=== PATIENT | male | born 1985 | race Two or more races ===

== ENCOUNTER 2019-05-25 11:18 | Emergency (ER) | payer MEDICAID ==
[~2019-05-25] VITALS: Ht 185.4 cm; Wt 97.5 kg
[2019-05-25 11:24] VITALS: BP 147/94
[2019-05-25 12:49] LABS: Basophils # (auto) 0.1 10 ^3/uL (0-0.2); Basophils % (auto) 1.2 % (0.0-2.0); Eosinophils # (auto) 0.1 10 ^3/uL (0-0.8); Eosinophils % (auto) 0.8 % (0.0-7.0); Hemoglobin 14.7 g/dL (13.5-17.5); Lymphocytes # (auto) 2.3 10 ^3/uL (0.4-5.4); Lymphocytes % (auto) 21.4 % (10.0-50.0); Mean Corpuscular Hemoglobin 31.3 pg (28.0-32.0); Mean Corpuscular Hgb Conc. 34.2 g/dL (32.0-36.0); Mean Corpuscular Volume 91.7 fL (80.0-100.0); Monocytes # (auto) 0.9 10 ^3/uL (0-1.3); Monocytes % (auto) 8.7 % (0.0-12.0); Neutrophils # (auto) 7.3 10 ^3/uL (1.6-8.6); Neutrophils % (auto) 67.9 % (37.0-80.0); Platelet Count (auto) 244 10^3/uL (140-450); Red Blood Cells 4.69 10^6/uL (4.5-5.90); Red Cell Distribution Width 12.4 % (11.8-14.3); White Blood Cell 10.8 10^3/uL (4.4-10.8)
[2019-05-25] MEDS ORDERED: IOHEXOL 300 MG/ML 100ML BOTTLE IJ ONE (12:54)
[2019-05-25] MEDS ORDERED: KETOROLAC TROMETH 15 mg/ml 1ML VL IV ONE ×2 (13:00→13:15)
[2019-05-25 13:06] LABS: Albumin 4.1 g/dL (3.4-5.0); BUN/Creatinine Ratio 12.7; Calcium 9.4 mg/dL (8.5-10.1); Potassium 3.5 mmol/L (3.5-5.1)
[2019-05-25 13:08] LABS: Bilirubin, Total 1.8 mg/dL (0.2-1.0); Total Protein 7.8 g/dL (6.4-8.2)
[2019-05-25] MEDS ORDERED: cefTRIAXone 1GM/50ML D5W 50 ML IV ONE (13:45)
== END 2019-05-25 14:18 | disposition home or self-care (01) ==
LOC: ER 11:18
DX: M51.16 Intervertebral disc disorders with radiculopathy, lumbar region (principal); K61.0 Anal abscess; F17.210 Nicotine dependence, cigarettes, uncomplicated
CPT/HCPCS: 36415; 74177; 80053; 85025; 96365; 96375; 99285; J0696; J1885; Q9967

== ENCOUNTER → 2019-05-30 | Emergency (ER) | payer MEDICAID ==
[~2019-05-30] VITALS: Ht 185.4 cm; Wt 97.5 kg
[~2019-05-30] MED LIST: CEPH-37 PO; HYDROmorphone HCL 2 MG/ML VL IV ONE; KETOROLAC TROMETH 60MG/2ML VIAL IM ONE; ONDANSETRON HCL 4 MG/2 ML VIAL IV ONE
[2019-05-30 12:10] VITALS: BP 127/80
== END | disposition home or self-care (01) ==
LOC: ER 09:52
DX: S76.211A Strain of adductor muscle, fascia and tendon of right thigh, initial encounter (principal); X58.XXXA Exposure to other specified factors, initial encounter; Y93.89 Activity, other specified; Y92.89 Other specified places as the place of occurrence of the external cause; Y99.8 Other external cause status
CPT/HCPCS: 76870; 96372; 96374; 96375; 99284; J1170; J1885; J2405

== ENCOUNTER 2019-06-03 05:36 | Inpatient (IN) | payer MEDICAID ==
[~2019-06-03] VITALS: Ht 185.4 cm; Wt 105.5 kg
[2019-06-03] MEDS ORDERED: ONDANSETRON HCL 4 MG/2 ML VIAL IV ONE (06:15)
[2019-06-03] MEDS ORDERED: MORPHINE SULFATE 10 MG/ML INJ 1ML SDV IV ONE (06:15)
[2019-06-03] MEDS ORDERED: SODIUM CHLORIDE 0.9% 1,000 ML IV ONE (06:54)
[2019-06-03] MEDS ORDERED: cefTRIAXone 1GM/50ML D5W 50 ML IV ONE (07:00)
[2019-06-03 07:49] LABS: Basophils # (auto) 0 10 ^3/uL (0-0.2); Basophils % (auto) 0.1 % (0.0-2.0); Eosinophils # (auto) 0.1 10 ^3/uL (0-0.8); Eosinophils % (auto) 0.4 % (0.0-7.0); Hematocrit 39.8 % (41.0-53.0); Hemoglobin 13.7 g/dL (13.5-17.5); Lymphocytes # (auto) 1.7 10 ^3/uL (0.4-5.4); Lymphocytes % (auto) 6.7 % (10.0-50.0); Mean Corpuscular Hemoglobin 31.2 pg (28.0-32.0); Mean Corpuscular Hgb Conc. 34.5 g/dL (32.0-36.0); Mean Corpuscular Volume 90.4 fL (80.0-100.0); Monocytes # (auto) 1.6 10 ^3/uL (0-1.3); Monocytes % (auto) 6.6 % (0.0-12.0); Neutrophils # (auto) 21.4 10 ^3/uL (1.6-8.6); Neutrophils % (auto) 86.2 % (37.0-80.0); Platelet Count (auto) 416 10^3/uL (140-450); Red Cell Distribution Width 12.4 % (11.8-14.3); White Blood Cell 24.8 10^3/uL (4.4-10.8)
[2019-06-03 08:04] LABS: BUN/Creatinine Ratio 24.6; Calcium 9.6 mg/dL (8.5-10.1); Potassium 3.4 mmol/L (3.5-5.1)
[2019-06-03 08:05] LABS: INR 1.18 (0.9-1.15); Partial Thromboplastin Time 31.6 sec (23.64-32.05)
[2019-06-03 08:06] LABS: Bilirubin, Total 0.5 mg/dL (0.2-1.0); Total Protein 8.5 g/dL (6.4-8.2)
[2019-06-03] MEDS ORDERED: levoFLOXacin 750MG 150 ML IV ONE (09:45)
[2019-06-03] MEDS ORDERED: CLINDAMYCIN 900MG IV 50 ML IV ONE (09:45)
[2019-06-03] MEDS ORDERED: MORPHINE SULF INJ 2 MG/ML SYRINGE 1ML IV PRN (10:15)
[2019-06-03] MEDS ORDERED: ACETAMINOPHEN 500 MG TAB PO PRN (10:15)
[2019-06-03] MEDS ORDERED: PROMETHAZINE HCL 25 MG/ML 1ML IV PRN (10:15)
[2019-06-03] MEDS ORDERED: TEMAZEPAM 15 MG CAP PO PRN (10:15)
[2019-06-03] MEDS: SODIUM CHLORIDE 0.9% 1,000 ML IV SCH ×2 (10:20→23:39)
--- NOTE | 2019-06-03 10:55 | NUR ---
MS admit from ER MARIAMA WONG admitted to tele/MS after SBAR received. Patient oriented to SOFI PATEL primary RN, unit, [id number] and unit policies regarding patient care and visiting hours. Patient weighed by bedscale and encouraged to call if they need something. All questions and concerns addressed, patient verbalized understanding.
--- NOTE | 2019-06-03 11:25 | NUR ---
PAIN Patient complaining of pain in his scrotum /. Will administer pain medication as ordered.
[2019-06-03 12:00] VITALS: BP 138/89
--- NOTE | 2019-06-03 12:15 | NUR ---
PAIN REASSESSMENT Pain stating pain 10/10 still. Patient offered ice/hot packs, refused.
--- NOTE | 2019-06-03 12:51 | NUR ---
Paged MIHIR regarding pain management, patient stated that the pain is not being managed with morphine 2mg and is still reporting 10/10 pain.
--- NOTE | 2019-06-03 15:21 | NUR ---
MIHIR PAGED Regarding pain management for patient, new orders received, read back for clarification, will input and administer as ordered.
[2019-06-03] MEDS: KETOROLAC TROMETH 15 mg/ml 1ML VL IV PRN ×2 (15:42→22:36)
--- NOTE | 2019-06-03 15:42 | NUR ---
PAIN patient complaining of scrotal pain 10/10, pain medication administered as ordered.
--- NOTE | 2019-06-03 16:43 | NUR ---
PAIN REASSESSMENT Pain stating pain 6/10. Patient offered ice/hot packs, refused.
[2019-06-03 16:54] VITALS: BP 127/64
[2019-06-03] MEDS: IBUPROFEN 400 MG TAB PO PRN (18:25)
--- NOTE | 2019-06-03 19:42 | NUR ---
received pt from day rn poc reviewed
[2019-06-03 22:00] VITALS: BP 127/76
--- NOTE | 2019-06-03 22:30 | NUR ---
PT C/O PAIN 10/29 MEDICATED ORDERED
[2019-06-03] MEDS: FAMOTIDINE 20 MG TAB PO SCH (22:43)
--- NOTE | 2019-06-04 00:28 | NUR ---
PT C/O PAIN 12/29 REQUESTED A STRONGER PAIN MED HOSPITALIST PAGED
[2019-06-04] MEDS: IBUPROFEN 400 MG TAB PO PRN ×3 (00:51→17:28)
[2019-06-04] MEDS ORDERED: KETOROLAC TROMETH 15 mg/ml 1ML VL IV PRN (01:15)
[2019-06-04] MEDS: MORPHINE SULF INJ 2 MG/ML SYRINGE 1ML IV PRN ×4 (01:34→14:05)
--- NOTE | 2019-06-04 01:40 | NUR ---
PT WAS MEDICATED WITH MORPHINE FOR SCROTAL PAIN 12/29
[2019-06-04] MEDS ORDERED: ACETAMINOPHEN 500 MG TAB PO PRN (02:15)
[2019-06-04 05:00] VITALS: BP 129/78
--- NOTE | 2019-06-04 05:36 | NUR ---
medicated for scrotal pain 11/29
--- NOTE | 2019-06-04 05:56 | NUR ---
Pt is resting comfortable, pain relief with medication given
[2019-06-04 06:02] LABS: Basophils # (auto) 0 10 ^3/uL (0-0.2); Basophils % (auto) 0.1 % (0.0-2.0); Eosinophils # (auto) 0.1 10 ^3/uL (0-0.8); Eosinophils % (auto) 0.6 % (0.0-7.0); Hematocrit 35.2 % (41.0-53.0); Hemoglobin 12.5 g/dL (13.5-17.5); Lymphocytes # (auto) 2.1 10 ^3/uL (0.4-5.4); Lymphocytes % (auto) 9.8 % (10.0-50.0); Mean Corpuscular Hgb Conc. 35.5 g/dL (32.0-36.0); Monocytes # (auto) 1.1 10 ^3/uL (0-1.3); Monocytes % (auto) 5.2 % (0.0-12.0); Neutrophils # (auto) 18.5 10 ^3/uL (1.6-8.6); Neutrophils % (auto) 84.3 % (37.0-80.0); Nucleated Red Blood Cells % 0.1 %; Platelet Count (auto) 407 10^3/uL (140-450); Red Blood Cells 3.91 10^6/uL (4.5-5.90); Red Cell Distribution Width 12.1 % (11.8-14.3); White Blood Cell 21.9 10^3/uL (4.4-10.8)
[2019-06-04] MEDS: SODIUM CHLORIDE 0.9% 1,000 ML IV SCH ×3 (06:08→16:08)
[2019-06-04 06:19] LABS: Potassium 3.4 mmol/L (3.5-5.1)
[2019-06-04 06:26] LABS: Albumin 2.8 g/dL (3.4-5.0); BUN/Creatinine Ratio 21.2; Bilirubin, Total 0.6 mg/dL (0.2-1.0); Calcium 8.9 mg/dL (8.5-10.1); Total Protein 7.8 g/dL (6.4-8.2)
[2019-06-04 06:36] LABS: Urine Bacteria NONE SEEN /hpf (None Seen); Urine Blood Negative /uL (Negative); Urine Mucus FEW (None Seen); Urine Specific Gravity 1.031 (1.001-1.035); Urine WBC 2 /hpf (0 - 3)
--- NOTE | 2019-06-04 07:04 | NUR ---
report given to am nurse poc reviewed
--- NOTE | 2019-06-04 07:30 | NUR ---
Morning note patient resting in bed with eyes closed; respirations even and unlabored on room air, no distress noted. Fall precautions in place with call light within reach.
--- NOTE | 2019-06-04 08:00 | NUR ---
RE: Scrotum Scrotum is swollen, red and warm to touch. No drainage noted. Skin is intact. Patient denies recent trauma to the site.
--- NOTE | 2019-06-04 08:01 | NUR ---
RE: Patient using Chewing tobacco Patient using chewing tobacco and spitting into a bottle. Education provided. Patient verbalized understanding. Patient is alert and oriented.
[2019-06-04 09:00] VITALS: BP 124/80
[2019-06-04] MEDS: cefTRIAXone 1GM/50ML D5W 50 ML IV SCH (09:21)
[2019-06-04] MEDS: FAMOTIDINE 20 MG TAB PO SCH ×2 (10:00→22:06)
--- NOTE | 2019-06-04 10:12 | NUR ---
RE: intervention patient unable to ambulate due to discomfort in the scrotum area. Addendum: 06/04/19 at 1116 by Izzy Saldana RN Amended: Links added.
[2019-06-04] MEDS: levoFLOXacin 500MG 100 ML IV SCH (11:02)
[2019-06-04 12:43] VITALS: BP 131/73
--- NOTE | 2019-06-04 13:21 | NUR ---
Sole WALDRON RE: pain management Paged Dr. Teresa. Patient reports pain is not being managed with current PRN medications.
--- NOTE | 2019-06-04 14:10 | NUR ---
Ice pack provided to patient for pain management Patient medicated with PRN IV pain medication. Patient reports he is not comfortable. Ice pack provided. has been paged.
--- NOTE | 2019-06-04 14:12 | NUR ---
RE: intervention Patient unable to ambulate due to pain. has been paged. Addendum: 06/04/19 at 1418 by Izzy Saldana RN Amended: Links added.
--- NOTE | 2019-06-04 14:15 | NUR ---
Sole WALDRON (2nd) time RE: Pain management. Paged Dr. Teresa.
--- NOTE | 2019-06-04 14:18 | NUR ---
Updated MD on patient's reported pain Dr. Teresa verbalized understanding. Orders received and read back to verify. Spoke to MD RE: diet order. Order received and read back to verify.
[2019-06-04] MEDS ORDERED: HYDROmorphone HCL 2 MG/ML VL IV PRN (14:30)
--- NOTE | 2019-06-04 14:41 | NUR ---
Patient medicated per MD order IV PRN pain medication administered per MD order. Educated patient on medication. Patient verbalized understanding. Respirations even and unlabored on room air, no distress noted. Call light within reach.
--- NOTE | 2019-06-04 16:26 | NUR ---
was at bedside - Dr. Teresa This RN was at bedside. MD examined scrotum area with this RN at bedside.
[2019-06-04] MEDS ORDERED: POTASSIUM EFFERVESENT TAB 25 MEQ PO ONE (16:45)
[2019-06-04 16:57] VITALS: BP 138/77
--- NOTE | 2019-06-04 17:23 | NUR ---
RE: Pain Patient stated "The Dilaudid helped a little bit more than the Morphine. It made the pain more tolerable but didn't cover it for that long." Notified Dr. Teresa. Order received and read back to verify.
--- NOTE | 2019-06-04 18:12 | NUR ---
RE: Intervention Patient unable to ambulate per MD order due to pain and discomfort in scrotum. Patient repositioning self in bed. Addendum: 06/04/19 at 1813 by Izzy Saldana RN Amended: Links added.
[2019-06-04] MEDS: Ensure HIGH Protein Chocolate 8oz Bottle PO SCH (18:19)
[2019-06-04] MEDS: HYDROmorphone HCL 2 MG/ML VL IV PRN ×2 (18:34→22:44)
--- NOTE | 2019-06-04 18:49 | NUR ---
RE: Pain Patient reports pain has become tolerable and is comfortable after administration of PRN IV pain medication.
--- NOTE | 2019-06-04 18:50 | NUR ---
Closing note Patient resting in bed with even and unlabored respirations on room air, no distress noted. Fall precautions in place with call light within reach. Scrotum remains swollen, red and warm to touch with no drainage noted. Visitor at bedside.
--- NOTE | 2019-06-04 19:00 | NUR ---
OPENING NOTE Received report from day shift RN. Patient is A&O X's 4 with no s/s of distress noted. Patient reporting pain to scrotum at a 5. He reports not being able to ambulate because it is too painful. He said that he is comfortable at this time when at rest. Ice packs provided for patient to help maintain pain management. Educated patient on POC and to use call light when in need of assistance. Patient verbalized understanding. Bed is in lowest/locked position with side rails up X's 2 and call light is within reach of patient. Will continue care.
--- NOTE | 2019-06-04 19:20 | NUR ---
Care endorsed to RISHI Lutz.
[2019-06-04 22:07] VITALS: BP 140/92
--- NOTE | 2019-06-04 23:30 | NUR ---
PAIN Patient reported that pain is managed and he is comfortable. He reports that Dilaudid medication helped and rates pain to scrotal area at a 5. States that ice packs will help keep pain managed at this time. Educated patient to use call light when in need of assistance.
[2019-06-05] MEDS: IBUPROFEN 400 MG TAB PO PRN ×3 (00:10→18:28)
--- NOTE | 2019-06-05 01:15 | NUR ---
PAIN REASSESSMENT Patient is resting in bed with eyes closed. No s/s of discomfort noted. Will continue care.
[2019-06-05 05:03] VITALS: BP 126/82
[2019-06-05] MEDS: HYDROmorphone HCL 2 MG/ML VL IV PRN ×4 (05:31→20:04)
[2019-06-05 06:14] LABS: BUN/Creatinine Ratio 19.7; Calcium 9.1 mg/dL (8.5-10.1); Potassium 3.6 mmol/L (3.5-5.1)
[2019-06-05 06:50] LABS: Hematocrit 37.1 % (41.0-53.0); Hemoglobin 12.8 g/dL (13.5-17.5); Mean Corpuscular Hemoglobin 31.2 pg (28.0-32.0); Mean Corpuscular Hgb Conc. 34.4 g/dL (32.0-36.0); Mean Corpuscular Volume 90.5 fL (80.0-100.0); Platelet Count (auto) 433 10^3/uL (140-450); Red Cell Distribution Width 12.1 % (11.8-14.3); White Blood Cell 15.8 10^3/uL (4.4-10.8)
[2019-06-05 06:55] LABS: Band Neutrophils % (manual) 0; Basophils % (manual) 0 (0.0-2.0); Blast Cells 0; Eosinophils % (manual) 0 (0-7); Metamyelocytes % 0; Myelocytes % 0; Promyelocytes % 0; Reactive Lymphocytes 0
--- NOTE | 2019-06-05 07:35 | NUR ---
OPENING SHIFT NOTE Assumed care of patient. Patient is A&O X's 4 with no s/s of distress. Patient requested and given cold packs for his swelling. Educated patient on POC and to use call light when in need of assistance. Patient verbalized understanding. Bed is in lowest/locked position with side rails up X's 2 and call light is within reach of patient. Will continue care.
[2019-06-05 07:46] LABS: Lymphocytes % (manual) 9 (10.0-50.0); Monocytes % (manual) 6 (0-12)
[2019-06-05 08:54] VITALS: BP 129/76
[2019-06-05] MEDS: FAMOTIDINE 20 MG TAB PO SCH ×2 (09:00→21:57)
[2019-06-05] MEDS: cefTRIAXone 1GM/50ML D5W 50 ML IV SCH (09:00)
[2019-06-05] MEDS: levoFLOXacin 500MG 100 ML IV SCH (09:01)
[2019-06-05] MEDS: Ensure HIGH Protein Chocolate 8oz Bottle PO SCH ×3 (09:07→18:11)
--- NOTE | 2019-06-05 10:00 | NUR ---
Patient c/o scrotum pain, rates it 11/29. Will administer medication as prescribed by . Addendum: 06/05/19 at 1142 by Rosa Moe RN reassess pain 10:42 Patient states "my pain went down to a 10, but its starting to come back up" Will continue to monitor. Will administer medications as prescribed by .
[2019-06-05] MEDS: SODIUM CHLORIDE 0.9% 1,000 ML IV SCH (11:42)
[2019-06-05 13:00] VITALS: BP_SYST 123; BP_SYST 133; BP_DIAS 73; BP_DIAS 81
[2019-06-05 16:52] VITALS: BP 141/87
--- NOTE | 2019-06-05 18:44 | NUR ---
CLOSING NOTE Patient is comfortably sitting up in bed, no c/o pain. No s/s of distress/sob noted/stated. Bed at lowest locked position and call light within reach.
--- NOTE | 2019-06-05 19:15 | NUR ---
OPENING NOTE Received report from day shift RN. Patient is A&O X's 4 with no s/s of distress noted and reports pain 9/10 to scrotum. Educated patient on pain medication and pain management and POC. Patient verbalized understanding. Bed is in lowest/locked position with side rails up X's 2 and call light is within reach of patient. Will continue care.
--- NOTE | 2019-06-05 22:00 | NUR ---
PAIN PROVIDED ICE PACK FOR PAIN. PATIENT REPOSITIONED IN BED AND REPORTS COMFORT AT THIS TIME.
[2019-06-05 22:57] VITALS: BP 138/83
[2019-06-06] MEDS: HYDROmorphone HCL 2 MG/ML VL IV PRN ×9 (00:10→21:34)
--- NOTE | 2019-06-06 02:24 | NUR ---
ROUNDS Patient resting in bed. No s/s of discomfort noted. Will continue care
[2019-06-06] MEDS: SODIUM CHLORIDE 0.9% 1,000 ML IV SCH ×3 (04:10→17:17)
[2019-06-06 05:32] VITALS: BP 130/75
[2019-06-06 06:06] LABS: Potassium 3.6 mmol/L (3.5-5.1)
[2019-06-06 06:22] LABS: Basophils # (auto) 0 10 ^3/uL (0-0.2); Basophils % (auto) 0.4 % (0.0-2.0); Eosinophils # (auto) 0.2 10 ^3/uL (0-0.8); Eosinophils % (auto) 1.4 % (0.0-7.0); Hematocrit 36.7 % (41.0-53.0); Hemoglobin 12.9 g/dL (13.5-17.5); Lymphocytes # (auto) 2.2 10 ^3/uL (0.4-5.4); Lymphocytes % (auto) 17.9 % (10.0-50.0); Mean Corpuscular Hemoglobin 31.5 pg (28.0-32.0); Mean Corpuscular Hgb Conc. 35.1 g/dL (32.0-36.0); Mean Corpuscular Volume 89.8 fL (80.0-100.0); Monocytes # (auto) 0.7 10 ^3/uL (0-1.3); Monocytes % (auto) 5.5 % (0.0-12.0); Neutrophils # (auto) 9.3 10 ^3/uL (1.6-8.6); Neutrophils % (auto) 74.8 % (37.0-80.0); Nucleated Red Blood Cells % 0.1 %; Platelet Count (auto) 421 10^3/uL (140-450); Red Blood Cells 4.08 10^6/uL (4.5-5.90); Red Cell Distribution Width 12.1 % (11.8-14.3); White Blood Cell 12.5 10^3/uL (4.4-10.8)
[2019-06-06 06:29] LABS: Calcium 9.4 mg/dL (8.5-10.1)
[2019-06-06 06:39] LABS: BUN/Creatinine Ratio 21.2
--- NOTE | 2019-06-06 07:01 | NUR ---
SPOKE WITH MD Spoke with Dr. Gale. Informed him about the patient. Instructed to keep patient NPO. Will inform patient and day shift RN.
--- NOTE | 2019-06-06 07:30 | NUR ---
Opening Shift Note Assumed care of patient. Patient A&Ox4, Respirations even and non-labored with no s/s of distress. Patient aware of NPO order and surgery per Dr. Gale. Patient given ice packs for swelling. IV flushed, patent and intact. Discussed POC with patient. Bed lowered/locked with 2 side rails up. Call light within reach. Will continue to monitor.
[2019-06-06] MEDS: Ensure HIGH Protein Chocolate 8oz Bottle PO SCH ×3 (08:00→19:24)
[2019-06-06 08:44] VITALS: BP 132/79
[2019-06-06] MEDS: cefTRIAXone 1GM/50ML D5W 50 ML IV SCH (09:13)
[2019-06-06] MEDS: levoFLOXacin 500MG 100 ML IV SCH (09:13)
[2019-06-06] MEDS: FAMOTIDINE 20 MG TAB PO SCH ×2 (09:14→21:34)
[2019-06-06] MEDS ORDERED: SUCCINYLCHOLINE CHLORIDE 20 MG/ML 10ML VIAL IV ONE (11:30)
[2019-06-06] MEDS ORDERED: ROCURONIUM 10MG/ML 10ML VIAL IV ONE (11:54)
[2019-06-06] MEDS ORDERED: PROPOFOL 10 MG/ML 20 ML IV ONE (11:54)
[2019-06-06] MEDS ORDERED: NEOMYCIN-BACITRACIN-POLYM 15GM TOP OINT TOP ONE (11:55)
[2019-06-06] MEDS ORDERED: LIDOCAINE W/ EPINEPHRINE 1% 20ML VIAL ONE (11:55)
[2019-06-06] MEDS ORDERED: MIDAZOLAM HCL 1MG/1ML-2 ML VIAL ONE (12:01)
[2019-06-06] MEDS ORDERED: METOCLOPRAMIDE HCL 5MG/ml INJ 2ml VIAL ONE (12:01)
[2019-06-06] MEDS ORDERED: fentaNYL CITRATE 100 MCG/2 ML VL ONE (12:12)
[2019-06-06] MEDS ORDERED: HYDROmorphone HCL 2 MG/ML VL IV PRN (12:30)
[2019-06-06] MEDS ORDERED: ONDANSETRON HCL 4 MG/2 ML VIAL IV PRN (12:30)
[2019-06-06] MEDS ORDERED: NALOXONE HCL 0.4 MG/ML VIAL IV PRN (12:30)
[2019-06-06 13:00] VITALS: BP 137/91
--- NOTE | 2019-06-06 14:12 | NUR ---
PATIENT BACK FROM PROCEDURE. PATIENT ALERT AND ORIENTED. NO S/S OF DISTRESS/SOB NOTED/STATED. DRESSING TO SCROTAL SHOWS MILD SANGUINEOUS DRAINAGE TO ABD DRESSING. WILL CONTINUE TO MONITOR.
[2019-06-06 16:52] VITALS: BP 143/75
[2019-06-06] MEDS: metroNIDAZOLE 500MG/100ML 100 ML IV SCH ×2 (17:16→21:34)
--- NOTE | 2019-06-06 19:00 | NUR ---
OPENING NOTE Received report from day shift RN. Patient is in bed with no s/s of distress noted. Patient reports some mild pain but not in need of pain medication at this time. Educated patient on POC/ pain medication and management. Patient verbalized understanding. There is a minimal amount of sanguineous discharge on abdominal pad coming from the scrotum incision at this time. Bed is in lowest/locked position with side rails up X's 2 and call light is within reach of patient. Will continue care.
--- NOTE | 2019-06-06 19:24 | NUR ---
closing shift Patient is comfortably resting in bed. Breath sounds even and unlabored. No c/o pain. No s/s of distress/sob noted. Bed at lowest locked position and call light within reach. Care endorsed to Nelda BLACKWELL
[2019-06-06 22:00] VITALS: BP 123/71
--- NOTE | 2019-06-07 00:03 | NUR ---
DRESSING CHANGE Dressing change to scrotum done per MD orders. Patient tolerated well. Will continue care
--- NOTE | 2019-06-07 02:20 | NUR ---
ROUNDS Patient resting in bed with eyes closed. No s/s of discomfort noted. Will continue care.
[2019-06-07] MEDS: HYDROmorphone HCL 2 MG/ML VL IV PRN ×2 (02:52→10:02)
[2019-06-07] MEDS: SODIUM CHLORIDE 0.9% 1,000 ML IV SCH ×2 (04:08→14:00)
[2019-06-07 05:30] VITALS: BP 109/66
[2019-06-07 06:09] LABS: Potassium 3.7 mmol/L (3.5-5.1)
[2019-06-07 06:14] LABS: BUN/Creatinine Ratio 18.8; Calcium 9.4 mg/dL (8.5-10.1)
[2019-06-07 06:26] LABS: Mean Corpuscular Hgb Conc. 34.4 g/dL (32.0-36.0)
[2019-06-07 06:30] LABS: Hematocrit 36.7 % (41.0-53.0); Hemoglobin 12.6 g/dL (13.5-17.5); Platelet Count (auto) 449 10^3/uL (140-450); Red Blood Cells 4.08 10^6/uL (4.5-5.90); White Blood Cell 11.3 10^3/uL (4.4-10.8)
[2019-06-07 06:34] LABS: Basophils % (manual) 0 (0.0-2.0); Blast Cells 0; Metamyelocytes % 0; Myelocytes % 0; Promyelocytes % 0
[2019-06-07] MEDS: metroNIDAZOLE 500MG/100ML 100 ML IV SCH ×3 (06:34→21:46)
--- NOTE | 2019-06-07 07:48 | NUR ---
OPENING SHIFT NOTE Assumed care of patient. Patient is awake and alert. No S/S of distress/SOB or pain. Instructed on POC and to call for assist PRN, will continue to monitor. Bed locked in the lowest position. Bed rails up x2. Call light in reach.
[2019-06-07 08:17] LABS: Band Neutrophils % (manual) 1; Eosinophils % (manual) 1 (0-7); Lymphocytes % (manual) 17 (10.0-50.0); Monocytes % (manual) 10 (0-12); Reactive Lymphocytes 2
[2019-06-07 09:00] VITALS: BP 124/82
[2019-06-07] MEDS: Ensure HIGH Protein Chocolate 8oz Bottle PO SCH ×3 (10:01→17:32)
[2019-06-07] MEDS: levoFLOXacin 500MG 100 ML IV SCH (10:02)
[2019-06-07] MEDS: FAMOTIDINE 20 MG TAB PO SCH ×2 (10:02→21:47)
[2019-06-07 13:00] VITALS: BP 125/80
--- NOTE | 2019-06-07 14:28 | NUR ---
PHONED DR FANG PER WOUND CARE NURSE DR FANG STATED PT MAY PROCEED WITH WOUND VAC AND INSTRUCTED FOR PT TO FOLLOW UP WITH HIM IN ONE MONTH.
--- NOTE | 2019-06-07 16:08 | NUR ---
Nutrition Assessment Notes Please refer to link for full assessment notes. Est energy needs: 2190-0792 kcals (17-20 kcal/kgBW) Est protein needs: 71-87 gms/day (0.8-1.0 gm/kgBW) Will continue to monitor and reassess prn. Addendum: 06/07/19 at [address] Amended: Links added.
[2019-06-07 16:40] VITALS: BP 126/71
--- NOTE | 2019-06-07 18:28 | NUR ---
WOUND CARE PERFORMED ORDERED. PT TOLERATED WELL.
[2019-06-07 22:00] VITALS: BP 124/80
[2019-06-08] MEDS: SODIUM CHLORIDE 0.9% 1,000 ML IV SCH ×3 (00:01→20:16)
[2019-06-08] MEDS: HYDROmorphone HCL 2 MG/ML VL IV PRN ×5 (02:02→22:21)
[2019-06-08 05:00] VITALS: BP 119/71
--- NOTE | 2019-06-08 05:13 | NUR ---
PATIENT WAS MEDICATED WITH DILAUDID FOR SCROTAL PAIN AT 0202 AND SLEPT WELL THEREAFTER.
[2019-06-08] MEDS: metroNIDAZOLE 500MG/100ML 100 ML IV SCH ×3 (05:43→22:21)
[2019-06-08 05:51] LABS: Hematocrit 34.5 % (41.0-53.0); Mean Corpuscular Hemoglobin 31.5 pg (28.0-32.0); Mean Corpuscular Hgb Conc. 34.7 g/dL (32.0-36.0); Mean Corpuscular Volume 90.6 fL (80.0-100.0); Platelet Count (auto) 404 10^3/uL (140-450); Red Blood Cells 3.81 10^6/uL (4.5-5.90); Red Cell Distribution Width 12.2 % (11.8-14.3); White Blood Cell 9.1 10^3/uL (4.4-10.8)
[2019-06-08 06:26] LABS: Basophils % (manual) 0 (0.0-2.0); Blast Cells 0; Metamyelocytes % 0; Myelocytes % 0; Promyelocytes % 0; Reactive Lymphocytes 0
[2019-06-08 07:09] LABS: Band Neutrophils % (manual) 3; Eosinophils % (manual) 2 (0-7); Lymphocytes % (manual) 29 (10.0-50.0); Monocytes % (manual) 2 (0-12)
--- NOTE | 2019-06-08 07:30 | NUR ---
Opening Shift Note Assumed care of patient, awake and alert. No S/S of distress/SOB or pain. Instructed on POC and to call for assist PRN, will continue to monitor for changes Q1hr and PRN.
[2019-06-08] MEDS: Ensure HIGH Protein Chocolate 8oz Bottle PO SCH ×3 (08:00→18:13)
[2019-06-08 09:00] VITALS: BP 127/74
[2019-06-08 09:23] LABS: Hepatitis B Surface Antibody Positive
[2019-06-08 09:51] LABS: Hepatitis A Total Antibody Positive
--- NOTE | 2019-06-08 10:05 | NUR ---
Dr. Yung in to see patient as hospitalist. This RN spoke with mixer blender re order for wound vac.
[2019-06-08 10:09] LABS: Hepatitis B Core Total AB Negative; Hepatitis B Surface Antigen Negative (Negative)
[2019-06-08 10:10] LABS: Hepatitis C Antibody Negative (Negative)
[2019-06-08] MEDS: levoFLOXacin 500MG 100 ML IV SCH (10:14)
[2019-06-08] MEDS: FAMOTIDINE 20 MG TAB PO SCH ×2 (10:15→22:23)
[2019-06-08 13:00] VITALS: BP 124/71
--- NOTE | 2019-06-08 13:00 | NUR ---
WOUND CARE NOTE: IN TO SEE PATIENT AT THIS TIME PER WOUND CARE CONSULT REQUEST. PATIENT WAS ADMITT[facility] TO [facility] WITH DIAGNOSIS OF SCROTAL ABSCESS, CELLULITIS. CURRENT GARRISON SCORE IS 21. PATIENT RECENTLY UNDERWENT SURGERY WITH DR. FANG CONSISTING OF I&D ABSCESS, DEBRIDEMENT OF NECROTIZING FASCIITIS TO SCROTUM ON . DR. FANG HAS PLACED A WOUND VAC ORDER FOR PATIENT. IN TO APPLY WOUND VAC. PATIENT PREMEDICATED FOR PAIN PRIOR TO DRESSING CHANGE BY BEDSIDE NURSE. WOUND MEASURES 7 X 3.5 X 5 CM. WOUND BED IS BEEFY RED, NO AREAS OF UNDERMINING/TUNNELING NOTED. THERA ARE NO AREAS WITH NECROTIC TISSUE NOTED. NO INDURATION NOTED TO PERIWOUND. PERIWOUND SKIN IS LIGHT RED. LIGHT SEROUS DRAINAGE NOTED. CLEANSED/IRRIGATED WOUND WITH NORMAL SALINE. PATTED DRY WITH STERILE GAUZE. APPLIED CAVILON NO STING BARRIER FILM AND CLEAR DRAPE TO PERIWOUND. PACKED WOUND WITH WHITE GRANUFOAM, COVERED WITH BLACK GRANUFOAM. COVERED WOUND WITH CLEAR DRAPE, ATTACHED TRAC PAD, CONNECTED TO ULTA WOUND VAC. VAC SET TO 125 MM/HG CONTINUOUS. GOOD SUCTION, NO LEAKS DETECTED. PATIENT TOLERATED DRESSING CHANGE WELL, NOTING MODERATE PAIN. PHYSICIAN IS REQUESTING FOR HOME VAC, WITH PATIENT RECEIVING WOUND VAC TO SCROTAL WOUND FOR APPROXIMATELY 2 MONTHS DURATION. [facility] VAC THERAPY INSURANCE AUTHORIZATION FORM V3 FILLED OUT, PHYSICIAN SIGNED ORDER, PLACED IN CHART FOR PLANT PATHOLOGIST ACTION. RECOMMEND: Q 3 DAY/PRN WOUND VAC DRESSING CHANGE, CONTINUATION WITH DIETARY AND WOUND CARE MONITORING, SKIN/WOUND CARE PLAN. Addendum: 06/08/19 at 1511 by Bolssom Ordaz RN Amended: Links added.
[2019-06-08 16:27] VITALS: BP 136/79
--- NOTE | 2019-06-08 16:41 | NUR ---
D/C Planning Per consult for home health for wound Vac for scrotum. Order was faxed to Jessica and [facility]. Per Kirsty Lopez Ph:) patient has been accepted. Faxed order to [facility]. Per Rama with [facility] authorization for home health is [id number]. Faxed order to [facility] for WOUND VAC. Pending on WOUND VAC to be deliver. Will follow up tomorrow.
[2019-06-08 22:00] VITALS: BP 135/83
[2019-06-09] MEDS: HYDROmorphone HCL 2 MG/ML VL IV PRN ×4 (03:04→21:36)
[2019-06-09 05:00] VITALS: BP 120/75
[2019-06-09] MEDS: metroNIDAZOLE 500MG/100ML 100 ML IV SCH (05:44)
[2019-06-09] MEDS: SODIUM CHLORIDE 0.9% 1,000 ML IV SCH ×2 (05:46→16:15)
--- NOTE | 2019-06-09 07:30 | NUR ---
Opening Shift Note RECEIVED REPORT FROM NOC RN. Assumed care of patient, awake and alert. No S/S of distress/SOB or pain. BED IN LOWEST, LOCKED POSITION WITH SIDERAILS UP x2 AND CALL LIGHT WITHIN REACH. PATIENT ATTACHED TO WOUND VAC. Instructed on POC and to call for assist PRN, will continue to monitor for changes Q1hr and PRN.
[2019-06-09] MEDS: Ensure HIGH Protein Chocolate 8oz Bottle PO SCH ×3 (08:23→17:39)
[2019-06-09 09:00] VITALS: BP 132/90
[2019-06-09] MEDS: levoFLOXacin 500MG 100 ML IV SCH (10:05)
[2019-06-09] MEDS: FAMOTIDINE 20 MG TAB PO SCH ×2 (10:05→21:35)
--- NOTE | 2019-06-09 10:20 | NUR ---
WOUND CARE NOTE: Wound care in for daily monitoring of wound vac functioning. Patient continue resting in bed in Rm. 285A. Patient is awake, alert and oriented. He's in no stated pain at this time. Scrotal wound vac dressing is C/D/I and attached to Ulta Vac, functioning well at 125mm Hg continuous with no leak detected. Fast half but does not reached the 50 mL marked of serosanguineous drainage noted in Vacutainer. Wound care team will continue to monitor.
[2019-06-09 13:00] VITALS: BP 131/80
[2019-06-09] MEDS ORDERED: CEFTRIAXONE SODIUM 2 GM in D5W 5% 50 ML IV ONE (14:00)
[2019-06-09] MEDS ORDERED: CEPH-37 PO (14:01)
--- NOTE | 2019-06-09 14:54 | NUR ---
Nutrition Followup Notes Pt wt is 103.3 kf today Pt was awake with no relatives at bedside when rounded this morning. Pt noted no distress or complaints, doing well. Discussed nutrition for wounds and gave pt an article on MVI supplements. Will continue to monitor and followup prn. Est energy needs: 7872-6076 kcals (17-20 kcal/kgBW) Est protein needs: 71-87 gms/day (0.8-1.0 gm/kgBW) Will continue to monitor and reassess prn. LABS: GLUC 103 H, ALB 2.8 L GI: Last BM noted on 06/09/19 per RN doc BS: 21 low risk. Please refer to wound assessment care for full details PES: Problem Obesity r/t energy intake in excess of energy needs aeb 124% IBW and BMI of 30.2 kg/m2 Comments 1) Continue to closely monitor pt PO intake to meet a goal of at least 75% of meals eaten 2) Continue current plan of care
--- NOTE | 2019-06-09 16:11 | NUR ---
D/C Planning Updated order for home health physical therapy and wound vac/ wound care was faxed to [facility] and [facility] home health Ph:). Per Rama with [facility] updated authorization is [id number]. Placed followed up called to [facility], spoke to Izaiah. Per Izaiah order is pending and they will follow up with me with updates. Received a followed up called from [facility] Ph: ext. [phone]) at 15:00 advising me they are pending on [facility] to approved the Wound VAC. Per [facility] once is approved they will deliver to bedside. RISHI Gale was informed. Addendum: 06/09/19 at 1617 by KATT EMERSON Amended: Links added.
[2019-06-09 16:53] VITALS: BP 131/85
[2019-06-09 21:39] VITALS: BP 129/79
--- NOTE | 2019-06-09 21:47 | NUR ---
Opening Shift Note Assumed care of patient, awake and alert x4. Patient noted to have wound vac to scrotum at continuous suction at 125mm with approximately 25ml of serosanguineous drainage. Patient denies pain or shortness of breath at this time. Instructed on plan of care and to call for assistance as needed, patient verbalized understanding. Bed is locked in lowest position, side rails x 2 are up, call light is within reach. Addendum: 06/10/19 at 0142 by PRADEEP NEGRETE RN RN WRONG TIME: 21:47 CORRECT TIME: 19:30
--- NOTE | 2019-06-09 21:47 | NUR ---
Called [facility] to obtain update on wound vac delivery Called [facility] and spoke to Iris in regards to estimated time of wound vac deliver. Per Iris, we are awaiting authorization from insurance and once authorization is obtained wound vac will be delivered at the bedside.
--- NOTE | 2019-06-10 00:30 | NUR ---
RECEIVED REPORT FROM PRADEEP BLACKWELL. PATIENT SLEEPING. WILL CONTINUE TO MONITOR EVERY HOUR AND NEEDED.
--- NOTE | 2019-06-10 00:30 | NUR ---
CLOSING SHIFT NOTE Endorsed patient care to Julia BLACKWELL.
[2019-06-10] MEDS: SODIUM CHLORIDE 0.9% 1,000 ML IV SCH ×3 (01:05→22:21)
[2019-06-10] MEDS: HYDROmorphone HCL 2 MG/ML VL IV PRN ×4 (02:40→22:23)
--- NOTE | 2019-06-10 02:40 | NUR ---
PATIENT COMPLAINING OF SCROTAL PAIN 10/29. PAIN PRECIPITATED BY REPOSITIONING. ADMINISTERED MEDICATION. WILL REASSESS IN 30 MINUTES.
--- NOTE | 2019-06-10 03:10 | NUR ---
Pain reassessed. Patient states pain is 0/10. Patient resting quietly in bed, patient falling asleep. Will continue to monitor every hour and as needed.
[2019-06-10 05:35] VITALS: BP 129/79
--- NOTE | 2019-06-10 07:02 | NUR ---
PATIENT STATES SCROTAL PAIN IS 8/10. PATIENT REPOSITIONED AND MEDICATION ADMINISTERED. REASSESSMENT WILL BE ENDORSED TO DAYSHIFT RN.
--- NOTE | 2019-06-10 07:15 | NUR ---
Opening Shift Note Assumed care of patient, awake and alert. No S/S of distress/SOB or pain. Instructed on POC and to call for assist PRN, will continue to monitor for changes Q1hr and PRN. Fall precautions in place per safety protocol.
[2019-06-10 08:00] VITALS: BP 117/72
[2019-06-10] MEDS: Ensure HIGH Protein Chocolate 8oz Bottle PO SCH ×3 (08:00→18:06)
--- NOTE | 2019-06-10 08:24 | NUR ---
WOUND CARE NOTE: Wound care in for daily monitoring of wound vac functioning. Patient continue resting in bed in Rm. 285A. Patient is awake, alert and oriented. He's in no stated pain at this time. Scrotal wound vac dressing is C/D/I and attached to Ulta Vac, functioning well at 125mm Hg continuous with no leak detected. 50 mL serosanguineous drainage noted in Vacutainer. Patient has Discharge order, awaiting Home wound vac. Informed patient's nurse to follow up with cost control analyst transplant case manager today and call wound care if needed assistance to swap wound vac. Wound care team will continue to monitor.
[2019-06-10 09:19] VITALS: BP 117/72
[2019-06-10] MEDS: FAMOTIDINE 20 MG TAB PO SCH ×2 (10:03→22:20)
[2019-06-10] MEDS: cefTRIAXone 1GM/50ML D5W 50 ML IV SCH (10:03)
--- NOTE | 2019-06-10 11:13 | NUR ---
Spoke to case management, Nicole to follow-up on wound vac. Per Nicole, she will make some phone calls and give me a call back. will cont to monitor patient.
[2019-06-10 13:14] VITALS: BP 132/85
--- NOTE | 2019-06-10 13:39 | NUR ---
Weekend psychologist military personnel-I received a page from nurse Siria asking about wound vac delivery. I called [employer] (was on hold for 30 minutes)-spoke with Tayler-she stated they were still waiting on authorization from [facility]. I called [facility] (phone [phone]) and spoke with Garrett, asked her to call [employer] to provide them with verbal authorization per their request). Per Garrett, she won't call them-she said to have [employer] call her. I called [employer] again (phone [phone] was on hold for 30 minutes)-spoke with Tayler-asked her to call Garrett at [facility]-per Tayler she will have someone call [facility] and then they will call me back with ETA for wound vac.
--- NOTE | 2019-06-10 15:15 | NUR ---
Spoke to case management, Nicole. Per Nicole she is in contact with company delivering wound vac. Per Sinbad[employer], they have someone working on it right now. Per Nicole, she will give me a call back once, Sinbad: [employer] had provided her with an ETA. Will cont to monitor patient.
--- NOTE | 2019-06-10 15:18 | NUR ---
I called [facility] ([phone]) again and was on hold for more than 45 minutes-spoke with Tayler-she said she has been in contact with Juan who is assigned to this case, he will contact [facility] and then will give me a call back with an ETA for the wound vac. I relayed this information to nurse Beverly.
--- NOTE | 2019-06-10 16:34 | NUR ---
Nicole from case management called and states that [facility] was not able to get a hold of patients insurance due to office being closed. Nicole states, she will attempt again tomorrow morning. Patient is aware, this nurse will cont to monitor patient.
--- NOTE | 2019-06-10 16:58 | NUR ---
I called [facility] again and was on hold for more than 30 minutes-spoke with Alisson who told me that per the notes-Juan tried to contact [facility] group and was told that they were closed for the day. I relayed this information to nurse Beverly, letting her know that I would have to follow up with them in the morning.
[2019-06-10 17:27] VITALS: BP 123/73
--- NOTE | 2019-06-10 18:38 | NUR ---
Hospitalist at bedside MD Yang at bedside, aware of patient status. No new orders received at this time. Will cont to monitor patient.
--- NOTE | 2019-06-10 19:30 | NUR ---
Received report from the Day Shift RN. Ching. Initial assessment done.
--- NOTE | 2019-06-10 19:30 | NUR ---
Endorsed care to night RISHI Jackman. Patient resting in bed, no distress, sob, or pain noted at this time.
--- NOTE | 2019-06-10 20:00 | NUR ---
Assessment done and completed. Pt. resting, alert, awake, oriented x 4, and coherent. Pt. in Room Air, lungs are clear bilaterally, breathing regular and unlabored. No s/s of cough noted. No verbalization of pain @ this time. Pt. with wound vac @ the Right Scrotal area due to presence of abscess continuous suction @ 125. Pt. can ambulate with assist. IV access @ the RAC G # 20 with IVF of NS @ 100 ml./hr. continuous. Pt. on bedrest, can turn self and uses urinal @ the bedside. Maintained pt. safety with call-light within reach.
[2019-06-10 21:25] VITALS: BP 115/69
--- NOTE | 2019-06-10 22:21 | NUR ---
Meds. as scheduled given. Pt. provided health teachings on the use and benefits of the scheduled meds. Pt. verbalized understanding.
--- NOTE | 2019-06-10 22:23 | NUR ---
Pt. verbalized severe pain about 8/10 scale @ the scrotal area or testicle area attached to the wound vac, sharp and hurting as described by the pt.
--- NOTE | 2019-06-10 22:53 | NUR ---
Pt. started to sleep @ this time. No s/s of facial grimacing and no s/s of agitation or anxiety. Pt. calm and sleeping. Call-light @ the bedside.
--- NOTE | 2019-06-11 00:10 | NUR ---
Pt. resting and sleeping. Keep safe and dry cell assembly machine tender bed. Call-light within pt.'s reach.
--- NOTE | 2019-06-11 04:00 | NUR ---
Pt. sleeping well. Call-light @ the bedside. Door's closed to limit the noise from the outside the room.
[2019-06-11 04:42] VITALS: BP 122/78
[2019-06-11] MEDS: HYDROmorphone HCL 2 MG/ML VL IV PRN ×3 (06:28→15:21)
--- NOTE | 2019-06-11 06:28 | NUR ---
Pt. given Dilaudid 1 MG. IV for severe pain @ the Scrotal area or Testicle about 8/10 scale, sharp and hurting as described by the pt. Provided psychological support. Pt. on bedrest, able to turn self and compliant with nursing care.
--- NOTE | 2019-06-11 07:15 | NUR ---
Gave report to the next Day Shift RISHI Ching. Pt. resting in bed, comfortable and ready for breakfast.
[2019-06-11] MEDS: SODIUM CHLORIDE 0.9% 1,000 ML IV SCH ×2 (08:08→17:58)
[2019-06-11] MEDS: Ensure HIGH Protein Chocolate 8oz Bottle PO SCH ×3 (08:25→17:57)
[2019-06-11 08:41] VITALS: BP 129/69
[2019-06-11] MEDS: cefTRIAXone 1GM/50ML D5W 50 ML IV SCH (10:02)
[2019-06-11] MEDS: FAMOTIDINE 20 MG TAB PO SCH (10:02)
--- NOTE | 2019-06-11 11:44 | NUR ---
I called [facility] [phone] and spoke with Cyn-she will have someone contact Garrett-Power Line Installer at [facility] [phone] for auth for the wound vac-per Cyn call back in an hour for an update-I relayed this information to nurse Ching.
--- NOTE | 2019-06-11 11:46 | NUR ---
Nicole from case management called regarding patients wounds vas. Per Nicole, she contacted [employer], and they stated they would call insurance company and to call back in an hour. Per Mark, she will follow-up in an hour and give me a call back. Will cont to monitor patient.
--- NOTE | 2019-06-11 11:47 | NUR ---
Wound care done with wound care nurse Goldie. Patient medicated before, patient demonstrated pain 10/10. Will medicated patient with available [place]. Will cont to monitor patient.
--- NOTE | 2019-06-11 11:47 | NUR ---
WOUND CARE NOTE: Wound care in to see patient to change scrotal wound vac dressing and reevaluation of wound. Patient continue resting in bed in Rm. 285A. Patient is awake,alert and fully oriented. Patient is premedicated for pain by his bedside nurse prior dressing change. Patient is self turn and reposition. His Lopez score is 21. Removed patient's scrotal wound vac dressing. Patient is five days s/p I&D of scrotal abscess by Dr. Gale. Patient's scrotum has open full thickness wound measuring 5.2 x2.8 x3cm. Wound bed is red with pink noemi wound , minimal sanguineous drainage noted,no odor noted. Irrigated patient's scrotal wound with NS, patted dry with gauze. New photograph of wound are taken for reference. Applied skin protectant to periwound, allow to air dry. Applied one small piece of white foam at inner wound base, leaving tail. Fill wound cavity with one piece black granu foam. Secured foam dressing with sterile transparent drape. Applied trac pad and attached with Ulta vac. Continue wound vac at prescribed setting of 125 mmHg continuos therapy. Good suction noted, no leak detected. Patient tolerated well. RECOMMENDATION: Continuation of all wound care orders prescribed by MD, continue with skin/wound plan of care,continue monitoring by wound care while patient is hospitalized. Addendum: 06/11/19 at 1633 by Nisha eRy RN Amended: Links added.
[2019-06-11] MEDS: HYDROcodone-ACET 5/325MG TAB PO PRN ×2 (11:50→17:58)
[2019-06-11 12:43] VITALS: BP 136/95
--- NOTE | 2019-06-11 13:06 | NUR ---
I called [facility] [phone] and spoke with Tessa, she said she will call Garrett at [facility] now to obtain authorization and will give me a call back.
--- NOTE | 2019-06-11 13:32 | NUR ---
I received a call from [facility]-wound vac will be here within 4 hours-I made nurse Jeane aware.
--- NOTE | 2019-06-11 13:37 | NUR ---
I called [facility] [phone] and spoke with Kirsty to let her know that patient is discharging home today-she will send a nurse out tomorrow to see patient.
--- NOTE | 2019-06-11 14:00 | NUR ---
Received call from Nicole in case management, per Nicole, wound vac will be delivered in 4 hours. Will cont to monitor patient.
[2019-06-11 16:37] VITALS: BP 130/76
--- NOTE | 2019-06-11 17:12 | NUR ---
Confirmed home antibiotics with MD Yung. Call prescription to patients preferred pharmacy, [facility] in [place]. Will cont to monitor patient.
--- NOTE | 2019-06-11 17:30 | NUR ---
Wound vac was delivered to patient. Will proceed with discharge.
[2019-06-11 18:08] VITALS: BP 130/76
--- NOTE | 2019-06-11 18:46 | NUR ---
WOUND CARE NOTE: Received call from patient's nurse that patient's Home wound vac and supplies arrived at bedside and patient is ready to go home. Wound care in to assist bedside nurse to swap wound vac. Patient reeducated regarding NPWT. Given some tips in trouble shooting and telephone number to call in case of any wound vac problem. Patient already contacted by his Home health nurse and appointment is set. Patient verbalized understanding. Removed dirty canister and placed in red bin. Cleaned wound vac with Sani wipes, placed in dirty utility and called [employer] for pickle sorter.
--- NOTE | 2019-06-11 18:58 | NUR ---
Discharge instructions given as ordered. Encourage to follow up with PMD as instructed. All questions and concerns addressed. Patient verbalized understanding. Medication reconciliation form completed and copy given to patient. IV removed with catheter intact, pressure dressing applied. Patient taken to vehicle via wheelchair with all personal belongings, accompanied by staff. No distress noted at time of departure.
== END 2019-06-11 18:55 | disposition home health service (06) | DRG 720 ==
LOC: ER 05:36 → WEST WING 05:37
PROVIDERS: ADMIT Internal Medicine; ATTEND Internal Medicine
PROC: 0HBAXZZ Excision of Inguinal Skin, External Approach (ICD-10-PCS; 2019-06-06)
PROC: 0V950ZZ Drainage of Scrotum, Open Approach (ICD-10-PCS; principal; 2019-06-06 11:59)
DX: A41.9 Sepsis, unspecified organism (principal); M72.6 Necrotizing fasciitis; E44.0 Moderate protein-calorie malnutrition; N43.3 Hydrocele, unspecified; N49.2 Inflammatory disorders of scrotum; E87.6 Hypokalemia; F17.200 Nicotine dependence, unspecified, uncomplicated; E66.9 Obesity, unspecified; N50.89 Other specified disorders of the male genital organs; Z16.23 Resistance to quinolones and fluoroquinolones; E88.09 Other disorders of plasma-protein metabolism, not elsewhere classified; D63.8 Anemia in other chronic diseases classified elsewhere; Z83.3 Family history of diabetes mellitus; Z82.49 Family history of ischemic heart disease and other diseases of the circulatory system; Z68.30 Body mass index [BMI] 30.0-30.9, adult
CPT/HCPCS: 36415; 71045; 76870; 80048; 80053; 81001; 83036; 83605; 84443; 85007; 85025; 85027; 85610; 85730; 86703; 86704; 86706; 86708; 86803; 86850; 86900; 86901; 87040; 87070; 87075; 87076; 87077; 87086; 87186; 87205; 87340; 96365; 96367; 96375; G0378; J0330; J0696; J1956; J2250; J2405; J2704; J3490; J7060